=== PATIENT | female | born 1995 | race Caucasian/White ===

== ENCOUNTER 2016-12-12 22:22 | Emergency (ER) | payer OTHER ==
[~2016-12-12] VITALS: Ht 157.5 cm; Wt 66.2 kg
[~2016-12-12 22:22] MED LIST: Z.0.NO CURRENT MEDS
[2016-12-12 22:56] VITALS: BP 120/70; PULSE 115
[2016-12-12 22:58] VITALS: RESP 18; TEMP 98.3
--- NOTE | 2016-12-12 23:02 | PD ---
HPI Chief Complaint ctx, LOF Date Seen: Dec 12, 2016 Time Seen: 22:53 Travel History International Travel<30 Days: No Contact w/Intl Traveler<30Days: No Known Affected Area: No History of Present Illness HPI Pt is a 21y/o G1 @ 37.2wks who presents for ctx and ?LOF. She states that she feels the baby moving and thinks it may be contractions. It is not painful and is not consistent. She also reports that she has been leaking fluid x1wk. She did not come in because she didn't think she needed to. She recently was dx'd with a UTI at the end of last week. She has not yet picked up her abx or started taking them. +FM, no VB. Weeks Gestation: 37 Para: 0 : 1 Last Menstrual Period: Dec 12, 2016 History Past Medical History Medical History: Denies Significant Hx Obstetric History Obstetric History 1. current Past Surgical History Narrative Surgical breast augmentation LSC appy Family History Family History: Negative Social History Alcohol Use: No Tobacco Use: No Substance Abuse: No Allergies-Medications (Allergen,Severity, Reaction): Coded Allergies: No Known Allergies (Verified , 04/15/08) Home Meds Reported Medications Miscellaneous (No Current Meds) Misc, 0 Refills 06/09/08 Review of Systems Except as stated in HPI: all other systems reviewed are Neg Physical Exam Narrative GENERAL: Well-nourished, well-developed patient. SKIN: Warm and dry. HEAD: Normocephalic and atraumatic. EYES: No scleral icterus. No injection or drainage. ABDOMEN/GI: Abdomen soft, non-tender, gravid EXTREMITIES: No cyanosis or edema. BACK: Nontender without obvious deformity. No CVA tenderness. NEUROLOGICAL: Awake and alert. Motor and sensory grossly within normal limits. CVX: cl/th/hi, amnisure negative FHT's: 140, +accels, no decels, moderate variability, reactive TOCO: single ctx not felt by pt Data Data Vital Signs Reviewed: Yes Orders Orders Vital Signs (Adult) .ON ADMISSION (12/12/16 22:45) ^ Labor Status (12/12/16 22:45) Urinalysis - C+S If Indicated (12/12/16 22:45) ^ Non Stress Test (12/12/16 22:45) Pamg-1 Test .ONCE (12/12/16 22:45) MDM Plan Amnisure negative Cvx cl/th/hi and single ctx on toco Stable for d/c home with precautions Pt counseled on importance of compliance with UTI abx tx Diagnosis Diagnosis: Primary Impression: Additional Impressions: 37 weeks gestation of Vaginal discharge during in third trimester UTI (urinary tract infection) Linda Weston MD Dec 12, 2016 23:02
[2016-12-12] MEDS ORDERED: PRENTAB85 PO (23:16)
== END 2016-12-12 23:26 | disposition home or self-care (01) ==
LOC: HOBED 22:22
DX: O23.43 Unspecified infection of urinary tract in pregnancy, third trimester (principal); Z3A.37 37 weeks gestation of pregnancy
CPT/HCPCS: 59025; 84112

== ENCOUNTER 2016-12-13 18:44 | Emergency (ER) | payer OTHER ==
[~2016-12-13 18:44] MED LIST changes: +PRENTAB85 PO; -Z.0.NO CURRENT MEDS
--- NOTE | 2016-12-13 20:09 | PD ---
HPI Chief Complaint Decreased movement noted just today Date Seen: Dec 13, 2016 Time Seen: 20:00 Travel History International Travel<30 Days: No Contact w/Intl Traveler<30Days: No Known Affected Area: No History of Present Illness HPI 21-year-old black female at [address] Cole for care and presents complaining of decreased movement today. This is new events she had normal movement yesterday, she denies pain bleeding or leakage of fluid. And she states that since she's been here on OB ED the baby is moving after having the strap the monitors placed on her tummy embolus heart rate tracing is reactive and she is kong about every 6--7 minutes and the baby tolerates this contractions very well effectively it's a negative EXHIBITS CURATOR as well Weeks Gestation: 37 Para: 0 : 1 History Social History Alcohol Use: No Tobacco Use: No Substance Abuse: No Allergies-Medications (Allergen,Severity, Reaction): Coded Allergies: No Known Allergies (Verified , 12/12/16) Home Meds Reported Medications Vit W/ Ferrous Fumara (Pnv Plus Multivi 27-1 mg) 27 Mg Iron-1 Mg Tab, 1 TAB PO DAILY 12/12/16 Discontinued Reported Medications Miscellaneous (No Current Meds) Misc, 0 Refills 06/09/08 Review of Systems General / Constitutional: No: Fever, Weight Gain, Chills, Other Eyes: No: Diploplia, Blurred Vision, Visual changes, Pain, Photophobia HENT: No: Headaches, Vertigo, Lightheadedness Cardiovascular: No: Irregular Rhythm, Chest Pain or Discomfort, Palpitations, Tachycardia, Syncope, Varicosities, Edema, Cyanosis Respiratory: No: Cough, Short of Breath, Other Gastrointestinal: No: Nausea, Vomiting, Diarrhea Genitourinary: No: Decreased Urinary Output, Oliguria Musculoskeletal: No: Limited ROM, Weakness, Cramping, Edema, Pain Skin: No Rash, No Itching, No Dryness, No Lumps, No Change in Pigmentation, No Change in Nails, No Alopecia, No Lesions Neurologic: No: Weakness, Dizziness, Syncope, Focal Abnormalities, Coordination Problem, Headache, Slurred Speech, Seizures Psychiatric: No: Depression, Suicidal Ideations, Homicidal Ideation Endocrine: No: Heat Intolerance, Cold Intolerance, Polydipsia, Polyuria, Other Physical Exam Narrative GENERAL: Well-nourished, well-developed patient. SKIN: Warm and dry. HEAD: Normocephalic and atraumatic. EYES: No scleral icterus. No injection or drainage. ENT: No nasal drainage noted. Mucous membranes pink. Airway patent. NECK: Supple, trachea midline. No JVD. CARDIOVASCULAR: Regular rate and rhythm without murmurs, gallops, or rubs. RESPIRATORY: Breath sounds equal bilaterally. No accessory muscle use. BREASTS: Bilateral exam showed no masses , no retractions, no nipple discharge. ABDOMEN/GI: Abdomen soft, non-tender, bowel sounds present, no rebound, no guarding Gravid to [-37] weeks size Fundal Height: [37-] GENITOURINARY: External Genitalia: intact and normal in appearance BUS glands: [-] Cervix: [-] Dilatation: [0-] Effacement: [-0] Station: [-3] Presentation: [vtx-] Membranes: [intact ] Uterine Contractions: [-q 5-6 min] FHT's: Category: [1-] Baseline: [133-] Reactive: [yes-] Variability: [-mod] Decels: [-0] EXTREMITIES: No cyanosis or edema. BACK: Nontender without obvious deformity. No CVA tenderness. NEUROLOGICAL: Awake and alert. Motor and sensory grossly within normal limits. Five out of 5 muscle strength in all muscle groups. Normal speech. MDM Interpretation(s) Patient is 21-year-old white female at 37 weeks presents decreased movement. Here on OB ED heart rate tracing is reactive with accelerations and moderate variability. She has no bleeding or leakage of fluid. Cervix is closed and high. The patient states the babies been moving since she's been here in OB ED. She is kong every 5-6 minutes and the baby tolerates was contractions wonderfully so it's a negative EXHIBITS CURATOR as well Plan Plan to discharge patient home with kick counts monitoring and to have her drink orange juice or something similar if she notes the baby slowing again Diagnosis Diagnosis: Primary Impression: Decreased movement affecting management of in third trimester Disposition: 01 DISCHARGE HOME Condition: Stable Patient Instructions: General Instructions Departure Forms: Tests/Procedures Jose Elias Cabello II, MD Dec 13, 2016 20:09
== END 2016-12-13 20:22 | disposition home or self-care (01) ==
LOC: HOBED 18:44
DX: O36.8130 Decreased fetal movements, third trimester, not applicable or unspecified (principal); O62.9 Abnormality of forces of labor, unspecified; Z3A.37 37 weeks gestation of pregnancy
CPT/HCPCS: 59025

== ENCOUNTER 2016-12-17 18:25 | Inpatient (IN) | payer OTHER ==
[2016-12-17] VITALS (8 sets, daily range): BP systolic 119; BP diastolic 75; PULSE 94; RESP 18; TEMP 97.9–98.3
[~2016-12-17] VITALS: Ht 165.1 cm; Wt 70.0 kg
[2016-12-17] MEDS ORDERED: LIDOCAINE HCL 1% 50 ML VIAL ONE (19:00)
[2016-12-17] MEDS ORDERED: MINERAL OIL 10 ML VIAL TOPICAL PRN (19:15)
[2016-12-17] MEDS ORDERED: CITRIC ACID-SODIUM CITRATE LIQ 30 ML UDC PO SCH (19:15)
[2016-12-17] MEDS ORDERED: NS 500 ML BOLUS IV PRN (19:15)
[2016-12-17] MEDS ORDERED: LACTATED RINGER'S 1000 ML BOLUS IV PRN (19:15)
[2016-12-17] MEDS ORDERED: OXYTOCIN 30 UNITS 500ML PREMIX IV ONE (19:15)
[2016-12-17] MEDS ORDERED: ZOLPIDEM TARTRATE 10 MG TAB PO PRN (19:15)
[2016-12-17] MEDS ORDERED: ONDANSETRON HCL 4 MG/2 ML VIAL IV PUSH PRN (19:15)
[2016-12-17] MEDS ORDERED: DINOPROSTONE 10 MG INSERT-LEAVE FOR 12 HOURS VAGINAL ONE (19:15)
[2016-12-17] MEDS ORDERED: LIDOCAINE HCL 1% 50 ML VIAL I-DERMAL PRN (19:15)
[2016-12-17] MEDS ORDERED: LACTATED RINGER'S 1000 ML IV SCH (19:15)
[2016-12-17] MEDS ORDERED: NS 1000 ML IV PRN (19:15)
[2016-12-17] MEDS ORDERED: LIDOCAINE HCL 1% 50 ML VIAL INFIL PRN (19:15)
[2016-12-17] MEDS ORDERED: DINOPROSTONE 10 MG INSERT - REMOVE AT 0600 VAGINAL ONE (19:15)
[2016-12-17] MEDS: LACTATED RINGER'S 1000 ML INJ 1,000 ML IV SCH (19:15)
[2016-12-17 20:17] LABS: AUTOMATED NEUTROPHIL # 9.4 TH/MM3 (1.8-7.7); BASOPHIL % 0.2 % (0.0-2.0); BLOOD, URINE NEG (NEG); COMMENT (UR) CULT NOT INDICATED; CULTURE IF INDICATED CULT NOT INDICATED; EOSINOPHIL # 0.1 TH/MM3 (0-0.4); EOSINOPHIL % 0.4 % (0.0-4.0); GLUCOSE,URINE NEG (NEG); HEMATOCRIT 32.8 % (35.0-46.0); HEMO FLAGS DIFF FINAL; KETONE, URINE NEG (NEG); LYMPH % 22.2 % (9.0-44.0); MEAN CELL VOLUME 92.5 FL (80.0-100.0); MEAN CORPUSCULAR HEMOGLOBIN 31.5 PG (27.0-34.0); MONO % 6.9 % (0.0-8.0); MUCUS URINE FEW /lpf (OCC); NEUT % 70.3 % (16.0-70.0); NITRITE,URINE NEG (NEG); PLATELET COUNT 279 TH/MM3 (150-450); RED BLOOD COUNT 3.55 MIL/MM3 (4.00-5.30); RED CELL DISTRIBUTION WIDTH 12.5 % (11.6-17.2); SQUAMOUS EPITHELIAL CELL URINE 2 /hpf (0-5); URINE COLOR YELLOW (YELLW/STRAW); WHITE BLOOD COUNT 13.4 TH/MM3 (4.0-11.0)
--- NOTE | 2016-12-17 20:35 | HHI.HP ---
HPI Chief Complaint iugr iol Date Seen: Dec 15, 2016 Travel History International Travel<30 Days: No Contact w/Intl Traveler<30Days: No Known Affected Area: No History of Present Illness HPI 21 yo g1 w iup at 38 wk being admitted for iol for iugr. She started weekly testing w dopplers at 35 weeks. Her last visit in the office on 12/15/16, pt had a 10/10 bpp and normal dopplers. She reports good fm, neg vb, lof, irreg ctx vs ortiz coreas. Her has been c/b CT, neg test of reinfection, UT treated at 27 wk and 36w5d wks. Weeks Gestation: 38 : 1 History Past Medical History Medical History: Denies Significant Hx Obstetric History Obstetric History G1 edc12/31/16 Past Surgical History Narrative Surgical lsc appendectomy, breast augmentation Family History Family History: Negative Social History Alcohol Use: No Tobacco Use: No Substance Abuse: No Allergies-Medications (Allergen,Severity, Reaction): Coded Allergies: No Known Allergies (Verified , 12/12/16) Home Meds Reported Medications Vit W/ Ferrous Fumara (Pnv Plus Multivi 27-1 mg) 27 Mg Iron-1 Mg Tab, 1 TAB PO DAILY 12/12/16 Discontinued Reported Medications Miscellaneous (No Current Meds) Misc, 0 Refills 06/09/08 Review of Systems General / Constitutional: No: Fever, Weight Gain, Chills, Other Eyes: No: Diploplia, Blurred Vision, Visual changes, Pain, Photophobia HENT: No: Headaches, Vertigo, Lightheadedness Cardiovascular: No: Irregular Rhythm, Chest Pain or Discomfort, Palpitations, Tachycardia, Syncope, Varicosities, Edema, Cyanosis Respiratory: No: Cough, Short of Breath, Other Gastrointestinal: No: Nausea, Vomiting, Diarrhea Genitourinary: No: Decreased Urinary Output, Oliguria Musculoskeletal: No: Limited ROM, Weakness, Cramping, Edema, Pain Skin: No Rash, No Itching, No Dryness, No Lumps, No Change in Pigmentation, No Change in Nails, No Alopecia, No Lesions Neurologic: No: Weakness, Dizziness, Syncope, Focal Abnormalities, Coordination Problem, Headache, Slurred Speech, Seizures Psychiatric: No: Depression, Suicidal Ideations, Homicidal Ideation Endocrine: No: Heat Intolerance, Cold Intolerance, Polydipsia, Polyuria, Other Physical Exam Narrative GENERAL: Well-nourished, well-developed patient. SKIN: Warm and dry. HEAD: Normocephalic and atraumatic. EYES: No scleral icterus. No injection or drainage. ENT: No nasal drainage noted. Mucous membranes pink. Airway patent. NECK: Supple, trachea midline. No JVD. CARDIOVASCULAR: Regular rate and rhythm without murmurs, gallops, or rubs. RESPIRATORY: Breath sounds equal bilaterally. No accessory muscle use. ABDOMEN/GI: Abdomen soft, non-tender, bowel sounds present, no rebound, no guarding Gravid to 35] weeks size Fundal Height: [-] GENITOURINARY: External Genitalia: intact and normal in appearance BUS glands: [-] Cervix: //3, soft, post[-] Presentation: ceph Membranes: [intact Uterine Contractions: [-] FHT's: BPP 8/8 in office, normal dopplers EXTREMITIES: No cyanosis or edema. BACK: Nontender without obvious deformity. No CVA tenderness. NEUROLOGICAL: Awake and alert. Motor and sensory grossly within normal limits. Five out of 5 muscle strength in all muscle groups. Normal speech. Caprini VTE Risk Assessment Caprini VTE Risk Assessment: No/Low Risk (score <= 1) Caprini Risk Assessment Model Point Value = 1 Point Value = 2 Point Value = 3 Point Value = 5 Age 41-60 Minor surgery BMI > 25 kg/m2 Swollen legs Varicose veins or History of unexplained or recurrent spontaneous Oral contraceptives or hormone replacement Sepsis (< 1 month) Serious lung disease, including pneumonia (< 1 month) Abnormal pulmonary function Acute myocardial infarction Congestive heart failure (< 1 month) History of inflammatory bowel disease Medical patient at bed rest Age 61-74 Arthroscopic surgery Major open surgery (> 45 min) Laparoscopic surgery (> 45 min) Malignancy Confined to bed (> 72 hours) Immobilizing plaster cast Central venous access Age >= 75 History of VTE Family history of VTE Factor V Leiden Prothrombin [id number] Lupus anticoagulant Anticardiolipin antibodies Elevated serum homocysteine Heparin-induced thrombocytopenia Other congenital or acquired thrombophilia Stroke (< 1 month) Elective arthroplasty Hip, pelvis, or leg fracture Acute spinal cord injury (< 1 month) Prophylaxis Regimen Total Risk Factor Score Risk Level Prophylaxis Regimen 0-1 Low Early ambulation 2 Moderate Order ONE of the following: *Sequential Compression Device (SCD) *Heparin 5000 units SQ BID 3-4 Higher Order ONE of the following medications: *Heparin 5000 units SQ TID *Enoxaparin/Lovenox 40 mg SQ daily (WT < 150 kg, CrCl > 30 mL/min) *Enoxaparin/Lovenox 30 mg SQ daily (WT < 150 kg, CrCl > 10-29 mL/min) *Enoxaparin/Lovenox 30 mg SQ BID (WT < 150 kg, CrCl > 30 mL/min) AND/OR *Sequential Compression Device (SCD) 5 or more Highest Order ONE of the following medications: *Heparin 5000 units SQ TID (Preferred with Epidurals) *Enoxaparin/Lovenox 40 mg SQ daily (WT < 150 kg, CrCl > 30 mL/min) *Enoxaparin/Lovenox 30 mg SQ daily (WT < 150 kg, CrCl > 10-29 mL/min) *Enoxaparin/Lovenox 30 mg SQ BID (WT < 150 kg, CrCl > 30 mL/min) AND *Sequential Compression Device (SCD) Data Data Vital Signs Reviewed: Yes Orders Orders Lidocaine 1% Inj (50 Ml) (Xylocaine 1% I (12/17/16:00) Admit To Inpatient (12/17/16 ) Diet Liquid (12/17/16 Dinner) ^ Labor Induction (12/17/16 19:00) ^ Vaginal Insert (12/17/16 19:00) ^ Vaginal Lavage (12/17/16:00) Heart (12/17/16:00) Admit To Inpatient (12/17/16 ) Vital Signs (Adult) .Per protocol (12/17/16:) Activity Oob Ad Sara (12/17/16:) Heart (12/17/16:01) Amnioinfusion (12/17/16:) Urinary Catheter Management .ONCE (12/17/16:) Complete Blood Count With Diff (12/17/16:) Hold Clot (12/17/16:) Abo/Rh Blood Type (12/17/16:) Urinalysis - C+S If Indicated (12/17/16:) Resp Oxygen Non Rebreathe Mask (12/17/16 ) ^ Epidural / Intrathecal Infus (12/17/16 19:01) Zolpidem (Ambien) (12/17/16 19:15) Lactated Ringer's 1000 Ml Inj (Lr 1000 M (12/17/16 19:15) Lactated Ringer's 1000 Ml Inj (Lr 1000 M (12/17/16 19:15) Sodium Chlorid 0.9% 500 Ml Inj (Ns 500 M (12/17/16 19:15) Sodium Chlor 0.9% 1000 Ml Inj (Ns 1000 M (12/17/16 19:15) Lidocaine 1% Inj (50 Ml) (Xylocaine 1% I (12/17/16 19:15) Citric Acid-Sodium Citrate Liq (Bicitra (12/17/16 19:15) Ondansetron Inj (Zofran Inj) (12/17/16 19:15) Fentanyl Inj (Fentanyl Inj) (12/17/16 19:15) Fentanyl Inj (Fentanyl Inj) (12/17/16 19:15) Oxytocin 30 Units-500ml Premix (Pitocin (12/17/16 19:15) Lidocaine 1% Inj (50 Ml) (Xylocaine 1% I (12/17/16 19:15) Light Mineral Oil (Muri-Lube Oil) (12/17/16 19:15) Dinoprostone Vag Insert (Cervidil Vag In (12/17/16 19:15) Dinoprostone Vag Insert (Cervidil Vag In (12/17/16 19:15) Lactated Ringer's 1000 Ml Inj (Lr 1000 M (12/17/16 19:15) Group B Strep: Negative Labs Laboratory Tests Test 12/17/16 19:25 White Blood Count 13.4 Red Blood Count 3.55 Hemoglobin 11.2 Hematocrit 32.8 Mean Corpuscular Volume 92.5 Mean Corpuscular Hemoglobin 31.5 Mean Corpuscular Hemoglobin Concent 34.0 Red Cell Distribution Width 12.5 Platelet Count 279 Mean Platelet Volume 8.4 Neutrophils (%) (Auto) 70.3 Lymphocytes (%) (Auto) 22.2 Monocytes (%) (Auto) 6.9 Eosinophils (%) (Auto) 0.4 Basophils (%) (Auto) 0.2 Neutrophils # (Auto) 9.4 Lymphocytes # (Auto) 3.0 Monocytes # (Auto) 0.9 Eosinophils # (Auto) 0.1 Basophils # (Auto) 0.0 CBC Comment DIFF FINAL Differential Comment Urine Color YELLOW Urine Turbidity CLEAR Urine pH 6.0 Urine Specific Sentinel 1.018 Urine Protein NEG Urine Glucose (UA) NEG Urine Ketones NEG Urine Occult Blood NEG Urine Nitrite NEG Urine Bilirubin NEG Urine Urobilinogen LESS THAN 2.0 Urine Leukocyte Esterase NEG Urine RBC 1 Urine WBC 2 Urine Squamous Epithelial Cells 2 Urine Mucus FEW Microscopic Urinalysis Comment CULT NOT INDICATED Assessment/Plan Problem List: (1) IUGR (intrauterine growth restriction) affecting care of mother ICD Codes: O36.5990 - Maternal care for other known or suspected poor growth, unspecified trimester, not applicable or unspecified Assessment and Plan 21 yo G1 with iup at 38 wk admitted for iol for iugr 1) IOL for iugr- discussed iol can be long process that can take 24-36 hours, possibility of need for cd if labor does not progress normally. Discussed possibility of intolerance of labor and need for cd. Pt and family highly desire iol. Pt has low ibarra score so she will receive cervidil for cervical ripening. 2) GBS neg 3) Fetus- male, cephalic, efw on 12/15 15%, with HC under 2%, wt 5 lb 10 oz Haleigh Lobo MD Dec 17, 2016 20:35
[2016-12-18] VITALS (8 sets, daily range): BP systolic 98; BP diastolic 49; PULSE 79; RESP 18; TEMP 98.1–98.3
[2016-12-18] MEDS: LACTATED RINGER'S 1000 ML INJ 1,000 ML IV SCH ×2 (01:19→23:33)
[2016-12-18] MEDS ORDERED: DINOPROSTONE 10 MG VAG INSERT VAGINAL ONE (10:30)
[2016-12-18] MEDS ORDERED: OXYTOCIN 30 UNITS/NS 500ML PREMIX IV SCH (22:45)
--- NOTE | 2016-12-19 10:40 | PD.LABORPN ---
Subjective Subjective Chart reviewed and patient interviewed. Having irregular UCs No leaking or bleeding. was 15% but parameters < 10% Extended monitoring and cervical ripening tolerated very well. Desires to keep going. Objective Objective 1=2/50/-3 well applied anterior arom clear EFW 6 pounds pelvis clinically adequate strip category 1 Weeks Gestation: 38 Gest Age Assessed Date: Dec 19, 2016 Gest Age Assessed Time: 10:39 Pt started active labor?: Yes Active labor start date: Dec 19, 2016 Active labor start time: 10:39 Medical induction of labor?: Yes Medical induction start date: Dec 17, 2016 Medical induction start time: 22:00 Artificial rupture of membrane: Yes Artificial ROM date: Dec 19, 2016 Artifical ROM time: 10:39 Assessment/Plan Problem List: (1) IUGR (intrauterine growth restriction) affecting care of mother ICD Codes: O36.5990 - Maternal care for other known or suspected poor growth, unspecified trimester, not applicable or unspecified Assessment and Plan anticipate Jacquelin Vila MD Dec 19, 2016 10:40
[2016-12-19] MEDS ORDERED: OXYTOCIN 30 UNITS-500ML PREMIX 500 ML IV SCH ×2 (11:00→17:30)
[2016-12-19] MEDS ORDERED: fentaNYL 2MCG-BUPIV 0.125% INJ 100 ML ONE (11:14)
[2016-12-19] MEDS ORDERED: ePHEDrine/NS 25 MG/5 ML SYR IV PUSH PRN (13:15)
[2016-12-19] MEDS ORDERED: fentaNYL 2MCG-BUPIV 0.125% 100 ML EPIDURAL SCH (13:30)
[2016-12-19] MEDS ORDERED: DO NOT ADMINISTER ANTICOAGULANTS PRN (13:30)
[2016-12-19] MEDS ORDERED: NO SYSTEM NARCOTICS PRN (13:30)
[2016-12-19] MEDS ORDERED: MEASLES, MUMPS, RUBELLA VACCINE 0.5 ML VIAL SQ ONE (16:00)
[2016-12-19] MEDS ORDERED: DIPHTH/TETANUS/ACEL PERTUSSIS (BOOSTER) 0.5 ML VIAL/PFS IM ONE (16:00)
--- NOTE | 2016-12-19 17:24 | PD.OB.DELI ---
Weeks gestation: 38 Gest age assessed date: Dec 19, 2016 Gest age assessed time: 10:39 Pt started active labor?: Yes Active labor start date: Dec 19, 2016 Active labor start time: 10:39 Medical induction of labor?: Yes Medical induction start date: Dec 17, 2016 Medical induction start time: 22:00 Artificial rupture of membrane: Yes Artificial ROM date: Dec 19, 2016 Artifical ROM time: 10:39 Anesthesia: Epidural Episiotomy: None Vaginal Delivery: Normal Presentation: Occiput anterior Nuchal Cord: None Delayed cord clamping (45 sec): Yes Infant: Male Delivery date: Dec 19, 2016 Delivery time: 17:24 One Minute : 9 Five Minute : 9 Weight: 7 Placenta: Spontaneous delivery Laceration: No lacerations Jacquelin Jaeger MD Dec 19, 2016 17:24
[2016-12-19] MEDS ORDERED: ACETAMINOPHEN 325 MG TAB PO PRN (17:30)
[2016-12-19] MEDS ORDERED: IBUPROFEN 600 MG TAB PO PRN (17:30)
[2016-12-19] MEDS ORDERED: ONDANSETRON ODT 4 MG TAB PO PRN (17:30)
[2016-12-19] MEDS ORDERED: DOCUSATE SODIUM 50 MG/SENNA 8.6 MG TAB PO PRN (17:30)
[2016-12-19] MEDS ORDERED: ALUMINUM/MAGNESIUM/SIMETH 30 ML CUP PO PRN (17:30)
[2016-12-19] MEDS ORDERED: BENZOCAINE 20% TOPICAL SPRAY 60 ML CAN TOPICAL PRN (17:30)
[2016-12-19] MEDS ORDERED: WITCH HAZEL 50%/GLYCERIN 12.5% 40 PAD JAR TOPICAL PRN (17:30)
[2016-12-19] MEDS ORDERED: ZOLPIDEM TARTRATE 5 MG TAB PO PRN (17:30)
[2016-12-19] MEDS ORDERED: SODIUM CHLORIDE 0.9% FLUSH 10 ML FLUSH IV FLUSH PRN (17:30)
[2016-12-19] MEDS ORDERED: SODIUM CHLORIDE 0.9% FLUSH 10 ML FLUSH IV FLUSH SCH (21:00)
[2016-12-20 08:00] VITALS: BP 114/69; PULSE 81; RESP 16; TEMP 98
--- NOTE | 2016-12-20 08:15 | HHI.OB ---
Subjective Post Day: 1 Remarks s/p uncomplicated after prolonged induction at 38 wks for IUGR Objective Objective Remarks GENERAL: Well-nourished, well-developed patient. CARDIOVASCULAR: Regular rate and rhythm without murmurs, gallops, or rubs. RESPIRATORY: Breath sounds equal bilaterally. No accessory muscle use. ABDOMEN/GI: Abdomen soft, non-tender. Fundus: Firm, non-tender at umbilicus. GENITOURINARY: Light bleeding. EXTREMITIES: No cyanosis or edema, non-tender, without signs of DVT. Medications and IVs Current Medications Medications (Trade) Dose Ordered Sig/Giselle Route Start Time Stop Time Status Last Admin (Ambien) 10 mg HS PRN PO 12/17/16 19:15 Lactated Ringer's 1,000 ml @ 3,000 mls/hr BOLUS PRN IV 12/17/16 19:15 Sodium Chloride 500 ml @ 1,000 mls/hr BOLUS PRN IV 12/17/16 19:15 Sodium Chloride 1,000 ml @ 100 mls/hr Q10H PRN IV 12/17/16 19:15 (Bicitra Liq) 30 ml BIOINFORMATICS SOFTWARE ENGINEER PO 12/17/16 19:15 12/20/16 19:14 (Zofran Inj) 4 mg Q6H PRN IV PUSH 12/17/16 19:15 (fentaNYL INJ) 50 mcg Q1H PRN IV PUSH 12/17/16 19:15 (fentaNYL INJ) 100 mcg Q1H PRN IV PUSH 12/17/16 19:15 (Xylocaine 1% Inj (50 ml)) 10 ml UNSCH X1 PRN INFIL 12/17/16 19:15 12/20/16 19:14 (Muri-Lube Oil) 10 ml UNSCH PRN TOPICAL 12/17/16 19:15 Lactated Ringer's 1,000 ml @ 125 mls/hr Q8H IV 12/17/16 19:15 12/18/16 23:33 Oxytocin 500 ml @ 0 mls/hr TITRATE IV 12/19/16 11:00 Miscellaneous Information No systemic narcotics to be given except... UNSCH PRN .XX 12/19/16 13:30 12/20/16 13:29 Miscellaneous Information DO NOT ADMINISTER ANY ANTICOAGUL... UNSCH PRN .XX 12/19/16 13:30 12/20/16 13:29 Fentanyl/ Bupivacaine HCl 100 ml @ 0 mls/hr TITRATE EPIDURAL 12/19/16 13:30 (ePHEDrine/NS 25 MG/5 ML SYR) 10 mg UNSCH PRN IV PUSH 12/19/16 13:15 12/20/16 13:14 (NS Flush) 2 ml BID IV FLUSH 12/19/16 21:00 (NS Flush) 2 ml UNSCH PRN IV FLUSH 12/19/16 17:30 (Tylenol) 650 mg Q4H PRN PO 12/19/16 17:30 (Motrin) 600 mg Q6H PRN PO 12/19/16 17:30 (Americaine 20% Top Spr) 1 spray Q4H PRN TOPICAL 12/19/16 17:30 (Tucks Pads) 1 applic QID PRN TOPICAL 12/19/16 17:30 (Brandy-Colace) 2 tab Q12H PRN PO 12/19/16 17:30 (Ambien) 5 mg HS PRN PO 12/19/16 17:30 (Mag-Al Plus Susp Liq) 15 ml Q8H PRN PO 12/19/16 17:30 (Zofran Odt) 4 mg Q6H PRN PO 12/19/16 17:30 Assessment/Plan Problem List: (1) (spontaneous vaginal delivery) ICD Codes: O80 - Encounter for full-term uncomplicated delivery Status: Acute (2) IUGR (intrauterine growth restriction) affecting care of mother ICD Codes: O36.5990 - Maternal care for other known or suspected poor growth, unspecified trimester, not applicable or unspecified Status: Acute Qualifiers: Qualified Codes: O36.5930 - Maternal care for other known or suspected poor growth, third trimester, not applicable or unspecified Assessment and Plan PPD#1 routine supportive care breast & bottle feeding not for circ d/c planning for tmrw 12/21/16 Discharge Planning routine, 12/21/16 Justina Cole MD Dec 20, 2016 08:15
[2016-12-20 20:00] VITALS: BP 128/83; PULSE 100; RESP 16; TEMP 98.2
--- NOTE | 2016-12-21 06:52 | HHI.OB ---
Subjective Post Day: 2 Remarks Doing well, no complaints Objective Vitals/I&O Vital Signs Date Time Temp Pulse Resp B/P (MAP) Pulse Ox O2 Delivery O2 Flow Rate FiO2 12/20/16 20:00 98.2 100 16 12/20/16 20:00 128/83 (98) 12/20/16 08:00 98.0 81 16 12/20/16 08:00 114/69 (84) Objective Remarks GENERAL: Well-nourished, well-developed patient. CARDIOVASCULAR: Regular rate and rhythm without murmurs, gallops, or rubs. RESPIRATORY: Breath sounds equal bilaterally. No accessory muscle use. ABDOMEN/GI: Abdomen soft, non-tender. Fundus: Firm, non-tender at umbilicus. GENITOURINARY: Light bleeding. EXTREMITIES: No cyanosis or edema, non-tender, without signs of DVT. Medications and IVs Current Medications Medications (Trade) Dose Ordered Sig/Giselle Route Start Time Stop Time Status Last Admin (Ambien) 10 mg HS PRN PO 12/17/16 19:15 Lactated Ringer's 1,000 ml @ 3,000 mls/hr BOLUS PRN IV 12/17/16 19:15 Sodium Chloride 500 ml @ 1,000 mls/hr BOLUS PRN IV 12/17/16 19:15 Sodium Chloride 1,000 ml @ 100 mls/hr Q10H PRN IV 12/17/16 19:15 (Zofran Inj) 4 mg Q6H PRN IV PUSH 12/17/16 19:15 (fentaNYL INJ) 50 mcg Q1H PRN IV PUSH 12/17/16 19:15 (fentaNYL INJ) 100 mcg Q1H PRN IV PUSH 12/17/16 19:15 (Muri-Lube Oil) 10 ml UNSCH PRN TOPICAL 12/17/16 19:15 Lactated Ringer's 1,000 ml @ 125 mls/hr Q8H IV 12/17/16 19:15 12/18/16 23:33 Oxytocin 500 ml @ 0 mls/hr TITRATE IV 12/19/16 11:00 Fentanyl/ Bupivacaine HCl 100 ml @ 0 mls/hr TITRATE EPIDURAL 12/19/16 13:30 (NS Flush) 2 ml BID IV FLUSH 12/19/16 21:00 (NS Flush) 2 ml UNSCH PRN IV FLUSH 12/19/16 17:30 (Tylenol) 650 mg Q4H PRN PO 12/19/16 17:30 (Motrin) 600 mg Q6H PRN PO 12/19/16 17:30 (Americaine 20% Top Spr) 1 spray Q4H PRN TOPICAL 12/19/16 17:30 (Tucks Pads) 1 applic QID PRN TOPICAL 12/19/16 17:30 (Brandy-Colace) 2 tab Q12H PRN PO 12/19/16 17:30 (Ambien) 5 mg HS PRN PO 12/19/16 17:30 (Mag-Al Plus Susp Liq) 15 ml Q8H PRN PO 12/19/16 17:30 (Zofran Odt) 4 mg Q6H PRN PO 12/19/16 17:30 Assessment/Plan Problem List: (1) (spontaneous vaginal delivery) ICD Codes: O80 - Encounter for full-term uncomplicated delivery Status: Acute (2) IUGR (intrauterine growth restriction) affecting care of mother ICD Codes: O36.5990 - Maternal care for other known or suspected poor growth, unspecified trimester, not applicable or unspecified Status: Acute Qualifiers: Qualified Codes: O36.5930 - Maternal care for other known or suspected poor growth, third trimester, not applicable or unspecified Assessment and Plan PPD#2 routine supportive care breast & bottle feeding not for circ d/c planning for 12/21/16 Discharge Planning routine, 12/21/16 Haleigh Lobo MD Dec 21, 2016 06:52
[2016-12-21] MEDS ORDERED: IBUP-232 PO (07:09)
--- NOTE | 2016-12-21 07:11 | HHI.DS ---
Admission Date Dec 17, 2016 at 18:25 Admitting Diagnosis iugr Diagnosis: Delivery Date: Dec 19, 2016 Vaginal Delivery: Normal Infant: Male Brief History 21 yo g1 w iup at 38 wk being admitted for iol for iugr. She started weekly testing w dopplers at 35 weeks. Her last visit in the office on 12/15/16, pt had a 10/10 bpp and normal dopplers. She reports good fm, neg vb, lof, irreg ctx vs ortiz coreas. Her has been c/b CT, neg test of reinfection, UT treated at 27 wk and 36w5d wks. Pt Condition on Discharge: Good Discharge Disposition: Discharge Home Discharge Instructions Diet Instructions: As Tolerated, No Restrictions Activities You Can Perform: Shower Only-No Bath, Pelvic Rest Activities to Avoid: Strenuous Activity, Bathing, Sexual Activity Haleigh Lobo MD Dec 21, 2016 07:11
[2016-12-21 08:56] VITALS: BP 119/78; PULSE 90; RESP 18; TEMP 98.7
--- NOTE | 2016-12-21 17:02 | HHI.DCPOC ---
Discharge Care Plan Diagnosis: (1) IUGR (intrauterine growth restriction) affecting care of mother Your Health Problems Are: Vaginal delivery Report Symptoms to Your Doctor -Temperature above 100.5 degrees -Redness, of incision or excessive or foul smelling drainage -Unusual pain or calf pain -Increased vaginal bleeding -Painful or difficulty urinating -Feelings of extreme sadness or anxiety after 2 weeks Goals to Promote Your Health * To prevent worsening of your condition and complications * To maintain your health at the optimal level Directions to Meet Your Goals Take your medications as prescribed Follow your dietary instruction Follow activity as directed Ensure plenty of rest for recovery Drink fluids for hydration Keep your appointments as scheduled Take your immunizations and boosters as scheduled If your symptoms worsen call your PCP, if no PCP go to Urgent Care Center or Emergency Room Smoking is Dangerous to Your Health. Avoid second hand smoke Call the 24-hour crisis hotline for domestic abuse at Haleigh Lobo MD Dec 21, 2016 17:02
== END 2016-12-21 13:16 | disposition home or self-care (01) | DRG 775 ==
LOC: H2EA 18:25 → H1EA 12-19 19:26
PROVIDERS: ADMIT Obstetrics & Gynecology; ATTEND Obstetrics & Gynecology
PROC: 3E0P7VZ Introduction of Hormone into Female Reproductive, Via Natural or Artificial Opening (ICD-10-PCS; 2016-12-17)
PROC: 10E0XZZ Delivery of Products of Conception, External Approach (ICD-10-PCS; principal; 2016-12-19)
PROC: 10907ZC Drainage of Amniotic Fluid, Therapeutic from Products of Conception, Via Natural or Artificial Opening (ICD-10-PCS; 2016-12-19)
PROC: 00HU33Z Insertion of Infusion Device into Spinal Canal, Percutaneous Approach (ICD-10-PCS; 2016-12-19)
PROC: 3E0R3BZ Introduction of Anesthetic Agent into Spinal Canal, Percutaneous Approach (ICD-10-PCS; 2016-12-19)
DX: O36.5930 Maternal care for other known or suspected poor fetal growth, third trimester, not applicable or unspecified (principal); Z37.0 Single live birth; Z3A.38 38 weeks gestation of pregnancy
CPT/HCPCS: 81001; 85025; 86900; 86901; J2590; J7120